=== PATIENT | female | born 2005 | race Caucasian/White ===

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

== ENCOUNTER 2025-01-27 02:54 | Emergency (ER) | payer MEDICAID ==
[~2025-01-27] VITALS: Ht 157.5 cm; Wt 71.1 kg
[~2025-01-27 02:54] MED LIST changes: +CEPH500T PO; -SODIUM CHLORIDE 0.9% 1,000 ML IV ONE
[2025-01-27 03:18] VITALS: BP 122/63; PULSE 118; RESP 16; TEMP 99.2; O2SAT 98
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
--- NOTE | 2025-01-27 04:00 | DVH ---
CLINICAL INDICATION: INJURY/PAIN/SWELLING TECHNIQUE: XY R ANKLE 3 VIEW Comparison: None FINDINGS/IMPRESSION: : There is no evidence of acute fracture or dislocation. Moderate lateral malleolar soft tissue swelling. Soft tissues are otherwise unremarkable.
--- NOTE | 2025-01-27 04:01 | DVH ---
CLINICAL INDICATION: INJURY/PAIN/SWELLING TECHNIQUE: XY R HAND 3 VIEW XRAY Comparison: None FINDINGS/IMPRESSION: : Mildly displaced fracture of the base of the 5th metacarpal. No other fractures are identified. The visualized joint spaces are well preserved. The soft tissue elements are intact and normal in ap pearance.
--- NOTE | 2025-01-27 04:02 | DVH ---
CLINICAL INDICATION: INJURY/PAIN/SWELLING TECHNIQUE: XY R KNEE 3V XRAY Comparison: None FINDINGS/IMPRESSION: : There is no evidence of acute fracture or dislocation. Soft tissues are unremarkable.
[2025-01-27] MEDS ORDERED: IBUP-1456 PO (04:24)
== END 2025-01-27 04:28 | disposition home or self-care (01) ==
LOC: ER 02:54
DX: S92.354A Nondisplaced fracture of fifth metatarsal bone, right foot, initial encounter for closed fracture (principal); S93.491A Sprain of other ligament of right ankle, initial encounter; S80.211A Abrasion, right knee, initial encounter; W22.01XA Walked into wall, initial encounter; Y93.89 Activity, other specified; Y92.89 Other specified places as the place of occurrence of the external cause; Y99.8 Other external cause status
CPT/HCPCS: 29125; 73130; 73562; 73610

== ENCOUNTER 2025-08-07 02:41 | Emergency (ER) | payer MEDICAID ==
[~2025-08-07] VITALS: Ht 154.9 cm; Wt 68.3 kg
--- NOTE | 2025-08-07 04:32 | ED.PDOC ---
Psychiatric HPI Comments 19-year-old female who presents to the ED with a chief complaint of suicidal ideation onset today around 02:00. Patient states she took 1 bottle of unknown medication that were previously prescribed to her for mood stabilizing. Patient states she was drinking ETOH prior to taking pills, cut herself on LT forearm. With 10 minutes after ingesting the pills patient got scared, which the restroom and induced episodes of emesis. Denies any hallucinations, HI, diarrhea, headache, fever, chills, chest pain, shortness of breath, dizziness, blurred vision. No other symptoms or modifying factors present at this time. Chief Complaint: Suicidal Time Seen by MD: 04:25 Primary Care Provider: NONE Reviewed Notes: Medications, Allergies Information Source: Patient, Relative (Mother) Mode of Arrival: Ambulatory Severity of Mental Status: Moderate Severity of Symptoms: Moderate Duration: Since onset Prehospital treatment: None Presents with: Suicidal Ideation, Alcohol Intoxication Attempt: Laceration Ingestion: Intentional Circumstance: Other Current substance abuse: Unknown History of: Suicidal Attempt Location: Right, Arm Vital Signs Vital Signs Date Time Temp Pulse Resp B/P (MAP) Pulse Ox O2 Delivery O2 Flow Rate FiO2 08/07/25 13:56 98.0 80 16 112/63 (79) 100 98.0 Physical Exam PHYSICAL EXAM: General: Awake, alert and oriented. No acute distress. Skin: Skin in warm, dry and intact without rashes or lesions. HEENT: The head is normocephalic and atraumatic. Conjunctivae are clear without exudates or hemorrhage. Sclera is non-icteric. Neck: Normal range of motion. No JVD. Cardiac: Regular rate Respiratory: No signs of respiratory distress. No Stridor. Extremities: Upper and lower extremities are atraumatic in appearance without deformity. Neurological: The patient is awake, alert and oriented to person, place, and time with normal speech. Speech is clear. There is no facial asymmetry. Psychiatric: Appropriate mood and affect. Good judgement and insight. Review of Systems: REVIEW OF SYSTEMS: General: No fever, no chills, or fatigue HEENT: No sore throat, no earache, no congestion, no neck pain. Cardiac: No chest pain. No palpitations. Lungs: No shortness of breath, no cough. GI: No nausea, no vomiting, no diarrhea, no constipation, no abdominal pain : No dysuria, frequency, or urgency. No hematuria. Musculoskeletal: No joint pain , no joint swelling, no extremity edema. Skin: No rash, no itching. Neuro: No headache, no dizziness, no weakness Past Medical History PAST MEDICAL HISTORY: Denies Surgical History: Denies all surgeries MOLD DUMPER History: No Pertinent MOLD DUMPER History Family History Family History: Reviewed,noncontributory to illness Social History Smoker: Non-Smoker Alcohol: Occasionally Drugs: Denies Drug Use Lives In: Home Was a procedure done? Was a procedure done?: No Psych Differential Dx Psych. Differential Dx: Anxiety, Suicidal X-Ray, Labs, Meds, VS Vital Signs Date Time Temp Pulse Resp B/P (MAP) Pulse Ox O2 Delivery O2 Flow Rate FiO2 08/07/25 13:56 98.0 80 16 112/63 (79) 100 98.0 08/07/25 02:43 97.8 95 18 115/71 95 97.8 Lab Test 08/07/25 21:30 08/07/25 04:00 Range/Units Urine Color Light-yellow Yellow Urine Clarity Clear Clear Urine pH 6.5 5.0-9.0 Urine Specific [place] 1.027 1.001-1.035 Urine Protein Trace H Negative Urine Ketones Trace Negative Urine Blood 2+ H Negative /uL Urine Nitrite Negative Negative Urine Bilirubin Negative Negative Urine Urobilinogen Normal Negative mg/dL Urine Leukocyte Esterase 1+ Negative /uL Urine RBC 1 0 - 4 /hpf Urine Microscopic WBC 13 H 0-5 /HPF Urine Squamous Epithelial Cells Mod <5 /hpf Urine Bacteria Few H None Seen /hpf Urine Mucus Few None Seen Urine Glucose Normal Normal mg/dL Urine Test Negative Negative Urine Opiates Screen Neg NEGATIVE Urine Fentanyl Screen Neg NEGATIVE Urine Barbiturates Screen Neg NEGATIVE Urine Phencyclidine Screen Neg NEGATIVE Urine Amphetamines Screen Neg NEGATIVE Urine Benzodiazepines Screen Neg NEGATIVE Urine Cocaine Screen Neg NEGATIVE Urine Cannabinoids Screen Neg NEGATIVE White Blood Count 5.9 4.4-10.8 10^3/uL Red Blood Count 6.28 H 4.0-5.20 10^6/uL Hemoglobin 12.0 L 12.2-16.2 g/dL Hematocrit 38.2 36.0-46.0 % Mean Corpuscular Volume 60.9 L 80.0-100.0 fL Mean Corpuscular Hemoglobin 19.1 L 28.0-32.0 pg Mean Corpuscular Hemoglobin Concent 31.4 L 32.0-36.0 g/dL Red Cell Distribution Width 17.3 H 11.8-14.3 % Platelet Count 343 140-450 10^3/uL Mean Platelet Volume 9.0 6.9-10.8 fL Neutrophils (%) (Auto) 78.6 37.0-80.0 % Lymphocytes (%) (Auto) 17.8 10.0-50.0 % Monocytes (%) (Auto) 2.8 0.0-12.0 % Eosinophils (%) (Auto) 0.2 0.0-7.0 % Basophils (%) (Auto) 0.6 0.0-2.0 % Neutrophils # (Auto) 4.7 1.6-8.6 10 ^3/uL Lymphocytes # (Auto) 1.1 0.4-5.4 10 ^3/uL Monocytes # (Auto) 0.2 0-1.3 10 ^3/uL Eosinophils # (Auto) 0 0-0.8 10 ^3/uL Basophils # (Auto) 0 0-0.2 10 ^3/uL Nucleated Red Blood Cells 0.0 % Sodium Level 144 136-145 mmol/L Potassium Level 3.8 3.5-5.1 mmol/L Chloride Level 107 98-107 mmol/L Carbon Dioxide Level 25 20-31 mmol/L Anion Gap 12 5-15 Blood Urea Nitrogen < 5 L 9-23 mg/dL Creatinine 0.65 0.550-1.02 mg/dL Glomerular Filtration Rate Calc 130 >90 mL/min BUN/Creatinine Ratio 7.7 L 10.0-20.0 Serum Glucose 114 H 74-106 mg/dL Calcium Level 8.9 8.7-10.4 mg/dL Salicylates Level < 3.0 -30 mg/dL Acetaminophen Level 14.0 10.0-20.0 UG/ML Plasma/Serum Blood Alcohol 154.0 H <10 mg/dL Patient alert. Vitals stable. Alcohol in her system. Answering questions. Denies suicidal or homicidal ideation. WBC within normal limits. Medically cleared. Psychiatric evaluation. Continue monitoring. Time of 1ST Reevaluation: 04:55 Reevaluation 1ST: Unchanged Patient Education/Counseling: Diagnosis, Treatment, Need For Follow Up Family Education/Counseling: Diagnosis, Treatment, Need For Follow Up Departure 1 Departure Time of Disposition: 14:08 Impression: Primary Impression: Acute anxiety Additional Impressions: Suicidal ideation Intentional drug overdose Disposition: 30 STILL A PATIENT Condition: Good Additional Instructions: ED DISCHARGE INSTRUCTIONS Instructions: Please read all instructions provided in this packet carefully. Although you have been discharged from the Emergency Department, this does not mean that you have a "clean bill of health". It is possible that you are in the process of developing a serious illness. This is why you must return to the ED without fail if any new or worsening symptoms (especially if your symptoms include thoughts of wanting to harm yourself or others, chest pain, trouble breathing, abdominal pain, fever, headache, confusion, trouble seeing, or trouble walking) It is also very important that you see a primary care provider (PCP) within the next 3-5 days to follow up. Follow up with your mental health provider as recommended by psychiatrist. If you are unable to get an appointment, return to the ED for re-evaluation. Where to get help 24 hours a day, 7 days a week Call the Suicide and Crisis Lifeline at 489. Call 2-976-750-YQMV ( ). Text HOME to 694777 to access the Crisis Text Line. Consider saving these numbers in your phone. Go to [email or web address] for more information or to chat online. Comments MDM: 19 year old female presented to the ED after intentional medication overdose. She reported no longer having suicidal ideation. She was medically cleared. She was evaluated by Psychiatrist who recommended discharge home to follow up with her outpatient mental health provider. - Critical Care Note Critical Care Time?: No Stability Stability form required: No Heart Score Heart Score: Heart Score Response (Comments) Value History N/A 0 EKG N/A 0 Age N/A 0 Risk Factors N/A 0 Troponin N/A 0 Total 0 I personally scribed for PING DYSON MD ([email or web address]) on 08/07/25 at 04:32. Electronically submitted by Cori Lo ([email or web address]). PING DYSON MD Aug 07, 2025 04:32 SANDRA ROWLEY MD Aug 07, 2025 14:10
[2025-08-07 04:34] LABS: Hematocrit 38.2 % (36.0-46.0); Hemoglobin 12.0 g/dL (12.2-16.2); Mean Corpuscular Hemoglobin 19.1 pg (28.0-32.0); Mean Corpuscular Volume 60.9 fL (80.0-100.0); Nucleated Red Blood Cells % 0.0 %
[2025-08-07 04:50] LABS: Chloride 107 mmol/L (98-107); Potassium 3.8 mmol/L (3.5-5.1); Sodium 144 mmol/L (136-145)
[2025-08-07 04:51] LABS: Anion Gap 12 (5-15); Carbon Dioxide 25 mmol/L (20-31)
[2025-08-07 04:52] LABS: Calcium 8.9 mg/dL (8.7-10.4)
[2025-08-07 04:56] LABS: Acetaminophen 14.0 UG/ML (10.0-20.0)
[2025-08-07 04:57] LABS: BUN/Creatinine Ratio 7.7 (10.0-20.0); Blood Urea Nitrogen < 5 mg/dL (9-23); Glucose 114 mg/dL (74-106); Salicylate < 3.0 mg/dL (-30)
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
[2025-08-07 21:59] LABS: Amphetamine Screen, Urine Neg (NEGATIVE); Barbiturate Scree,Urine Neg (NEGATIVE); Benzodiazephine Screen, Urine Neg (NEGATIVE); Opiate Scree,Urine Neg (NEGATIVE)
[2025-08-07 22:00] LABS: Cannabinoid Screen, Urine Neg (NEGATIVE); Cocaine Screen, Urine Neg (NEGATIVE); Phencyclidine Screen, Urine Neg (NEGATIVE)
[2025-08-07 22:02] LABS: Urine Protein, UAD TRACE (Negative)
[2025-08-08 00:45] VITALS: BP 128/80; PULSE 89; RESP 16; TEMP 97.9; O2SAT 100
== END 2025-08-08 01:07 | disposition home or self-care (01) ==
LOC: ER 02:41
DX: T50.902A Poisoning by unspecified drugs, medicaments and biological substances, intentional self-harm, initial encounter (principal); F41.9 Anxiety disorder, unspecified; F19.10 Other psychoactive substance abuse, uncomplicated; F10.129 Alcohol abuse with intoxication, unspecified; Z91.51 Personal history of suicidal behavior; Y92.89 Other specified places as the place of occurrence of the external cause; Y90.9 Presence of alcohol in blood, level not specified
CPT/HCPCS: 36415; 80048; 80307; 80320; 80329; 81001; 81025; 85025